=== PATIENT | female | born 1955 | race Caucasian/White ===

== ENCOUNTER 2023-02-01 10:23 | Outpatient (OUT) | payer MEDICARE, SELFPAY ==
--- NOTE | 2023-02-01 10:26 | MM_ITS ---
Patient: BLAKE SCHULZ Exam Date: 02/01/2023 : 1955 Gender:F Ordering : DR CLEO LEYVA Admission #: [id number] Family : BLAKE HAILE Order #: [id number] CLICK HERE TO VIEW EXAM RADIOLOGY REPORT PROCEDURE: MM TOMOSYNTHESIS SCREENING BI COMPARISON: MG MAMM SCREEN 3D MAIKEL CAD, 01/30/2022. MG MAMM SCREEN 3D MAIKEL CAD, 01/24/2021. MG MAMM SCREEN 3D MAIKEL CAD, 12/12/2019. INDICATIONS: Screening mammogram Z12.31 Calculator Name NCI Breast Cancer Risk Assessment Tool 5 Year Breast Cancer Risk 1.90% Lifetime Breast Cancer Risk 6.20% Personal Breast Cancer No Personal Ovarian Cancer No Treatments None Family Cancers Aunt-maternal with breast cancer at age 70; Father with colon cancer at age 64. LOCATION: [facility] BREAST COMPOSITION: Scattered areas fibroglandular density. FINDINGS: DIAGNOSTIC CATEGORY 1--NEGATIVE. RIGHT BREAST: No significant suspicious finding. No significant change has occurred. LEFT BREAST: No significant suspicious finding. No significant change has occurred. RECOMMENDATIONS: ROUTINE MAMMOGRAM AND CLINICAL EVALUATION IN 12 MONTHS. PLEASE NOTE: A NORMAL MAMMOGRAM DOES NOT EXCLUDE THE POSSIBILITY OF BREAST CANCER. A CLINICALLY SUSPICIOUS PALPABLE LUMP SHOULD BE BIOPSIED. Dictated by: Ayden Briseno M.D. on 02/01/2023 at 13:01 Approved by: Ayden Briseno M.D. on 02/01/2023 at 13:03
== END 2023-02-01 10:25 | disposition home or self-care (01) ==
LOC: MAMMO 10:24
PROVIDERS: PCP Nurse Practitioner Family; Visit Provider Internal Medicine
DX: Z12.31 Encounter for screening mammogram for malignant neoplasm of breast (principal); Z80.3 Family history of malignant neoplasm of breast; Z80.0 Family history of malignant neoplasm of digestive organs
CPT/HCPCS: 77063; 77067

== ENCOUNTER 2024-02-05 12:01 | Outpatient (OUT) | payer MEDICARE, OTHER, SELFPAY ==
--- NOTE | 2024-02-05 12:09 | MM_ITS ---
Patient Name: BLAKE SCHULZ MR#: [id number] : 1955 Exam Date: 02/05/2024 Ordering Doctor: DR CLEO LEYVA RADIOLOGY REPORT PROCEDURE: MM TOMOSYNTHESIS SCREENING BI COMPARISON: MM TOMOSYNTHESIS SCREENING BI, 02/01/2023. MG MAMM SCREEN 3D MAIKEL CAD, 01/30/2022. MG MAMM SCREEN 3D MAIKEL CAD, 01/24/2021. MG MAMM SCREEN 3D MAIKEL CAD, 12/12/2019. INDICATIONS: Screening Calculator Name NCI Breast Cancer Risk Assessment Tool 5 Year Breast Cancer Risk 1.90% Lifetime Breast Cancer Risk 5.90% Personal Breast Cancer No Personal Ovarian Cancer No Treatments None Family Cancers Aunt-maternal with breast cancer at age 70; Father with colon cancer at age 64. LOCATION: [facility] BREAST COMPOSITION: There are scattered areas of fibroglandular density. FINDINGS: DIAGNOSTIC CATEGORY 1--NEGATIVE. RIGHT BREAST: No significant suspicious finding. No significant change has occurred. LEFT BREAST: No significant suspicious finding. No significant change has occurred. RECOMMENDATIONS: ROUTINE MAMMOGRAM AND CLINICAL EVALUATION IN 12 MONTHS. PLEASE NOTE: A NORMAL MAMMOGRAM DOES NOT EXCLUDE THE POSSIBILITY OF BREAST CANCER. A CLINICALLY SUSPICIOUS PALPABLE LUMP SHOULD BE BIOPSIED. Dictated by: Ayden Briseno M.D. on 02/08/2024 at 08:24 Approved by: Ayden Briseno M.D. on 02/08/2024 at 08:26
== END 2024-02-05 12:02 | disposition home or self-care (01) ==
LOC: MAMMO 12:04
PROVIDERS: PCP Nurse Practitioner Family; Visit Provider Internal Medicine
DX: Z12.31 Encounter for screening mammogram for malignant neoplasm of breast (principal); Z80.3 Family history of malignant neoplasm of breast; Z80.0 Family history of malignant neoplasm of digestive organs
CPT/HCPCS: 77063; 77067